=== PATIENT | female | born 1950 | race Two or more races ===

== ENCOUNTER 2024-02-10 20:45 | Inpatient (IN) | payer MEDICARE ==
[~2024-02-10] VITALS: Ht 165.1 cm; Wt 68.0 kg
[2024-02-10] MEDS: CEFEPIME 1 GM in IV D5W 50 ML IV ONE (21:30)
[2024-02-10] MEDS: IV NS 0.9% 1,000 ML BAG IV ONE (21:30)
[2024-02-10] MEDS: ACETAMINOPHEN ES 500 MG TABLET PO ONE (21:30)
[2024-02-10 21:37] LABS: BASOPHILS % (AUTO) 0.3 % (0.0-2.0); EOSINOPHILS % (AUTO) 0.2 % (0.0-6.0); HEMATOCRIT 39 % (33-45); HEMOGLOBIN 12.7 g/dL (11.5-14.8); LYMPHOCYTES % (AUTO) 22.2 % (20.0-44.0); MEAN CORPUSCULAR HEMOGLOBIN 30 PG (26.0-33.0); MEAN CORPUSCULAR HGB CONC 33 g/dl (31.0-36.0); MEAN CORPUSCULAR VOLUME 92 fL (82-100); MONOCYTES # (AUTO) 0.6 K/uL (0.1-1.30); MONOCYTES % (AUTO) 6.8 % (2.0-12.0); NEUTROPHILS # (AUTO) 6.5 K/uL (1.8-8.9); NEUTROPHILS % (AUTO) 70.5 % (43.0-81.0); PLATELET COUNT (AUTO) 296 K/uL (150-450); RED BLOOD CELL COUNT(AUTO) 4.21 MIL/uL (4.0-5.2); RED CELL DISTRIBUTION WIDTH 16.5 % (11.5-15.0); WHITE BLOOD COUNT (AUTO) 9.2 K/uL (4.3-11.0)
[2024-02-10] MEDS ORDERED: CEFEPIME 1 GM VIAL ONE (21:47)
[2024-02-10 21:48] LABS: CALCIUM, SERUM 9.2 mg/dL (8.5-10.1); CARBON DIOXIDE 30 mmol/L (21-32); CHLORIDE 104 mmol/L (98-107); CREATININE 0.8 mg/dL (0.6-1.3); GLUCOSE 144 mg/dL (74-106); POTASSIUM 4.3 mmol/L (3.5-5.1); SODIUM SERUM 141 mmol/L (136-145); UREA NITROGEN, BLOOD 14 mg/dL (7-18)
[2024-02-10] MEDS ORDERED: ACETAMINOPHEN ES 500 MG TABLET ONE (21:48)
[2024-02-10 21:53] LABS: INR 1.06 (0.91-1.10); PARTIAL THROMBOPLASTIN TIME 30.8 SEC (24.3-34.3); PROTHROMBIN TIME 11.2 SECS (9.2-11.1)
[2024-02-10 21:54] LABS: ALANINE AMINOTRANSFERASE 33 U/L (12-78); ALBUMIN 2.7 g/dL (3.4-5.0); ALKALINE PHOSPHATASE 77 U/L (46-116); ASPARTATE AMINOTRANSFERASE 38 U/L (15-37); BILIRUBIN,DIRECT 0.2 mg/dL (0.0-0.2); BILIRUBIN,TOTAL 0.6 mg/dL (0.2-1.0); TOTAL PROTEIN, SERUM 8.5 g/dL (6.4-8.2)
[2024-02-10 21:56] LABS: APPEARANCE,URINE SLIGHTLY CLOUDY (CLEAR); BILIRUBIN,URINE NEGATIVE (NEGATIVE); BLOOD, URINE NEGATIVE Ery/uL (NEGATIVE); COLOR,URINE YELLOW (YELLOW); KETONES,URINE NEGATIVE (NEGATIVE); LEUKOCYTE ESTERASE ,URINE 1+ (NEGATIVE); NITRITE, URINE NEGATIVE (NEGATIVE); PH,URINE 6.5 (5.0-8.0); PROTEIN,URINE TRACE mg/dl (NEGATIVE); UGLUCOSE NEGATIVE (NEGATIVE)
[2024-02-10 21:57] LABS: LACTIC ACID 2.3 mmol/L (0.4-2.0)
[2024-02-10 22:01] LABS: URINE AMORPHOUS URATE Many /HPF (None Seen)
[2024-02-10 22:02] LABS: ADD URINE CULTURE YES; BACTERIA,URINE Few /HPF (None Seen); RBC,URINE 0-2 /HPF (0-2); SQUAMOUS EPITHELIAL CELL,UR Few /HPF (None Seen)
[2024-02-11] MEDS ORDERED: METF-440 PO (08:39)
[2024-02-11] MEDS ORDERED: QUET25TA PO (08:39)
[2024-02-11] MEDS ORDERED: ATOR40TA PO (08:39)
[2024-02-11] MEDS ORDERED: CALC500T53 PO (08:39)
[2024-02-11] MEDS ORDERED: MEMA10TA PO (08:39)
[2024-02-11] MEDS ORDERED: DONE10TA44 PO (08:39)
[2024-02-11] MEDS ORDERED: DULO60CA45 PO (08:39)
[2024-02-11] MEDS ORDERED: QUET50TA PO (08:39)
[2024-02-11] MEDS ORDERED: ASPI-1169 PO (08:39)
[2024-02-11] MEDS ORDERED: DEXTROSE 50%-WATER 50 ML DISP.SYRIN IV PRN (09:30)
[2024-02-11] MEDS ORDERED: ACETAMINOPHEN 325 MG TABLET PO PRN (09:30)
[2024-02-11] MEDS: BLOOD SUGAR DIAGNOSTIC 1 EACH STRIP VI SCH (12:00)
[2024-02-11] MEDS: CEFTRIAXONE 1 G in IV D5W 50 ML IV SCH (14:29)
[2024-02-11] MEDS: QUETIAPINE FUMARATE 25 MG TABLET PO SCH (18:30)
[2024-02-11] MEDS: DONEPEZIL 5 MG TABLET PO SCH (18:31)
[2024-02-11] MEDS: MEMANTINE HCL 5 MG TABLET PO SCH (18:31)
[2024-02-11] MEDS: ATORVASTATIN 40 MG TABLET PO SCH (18:31)
[2024-02-11 20:00] VITALS: BP 135/78; TEMP 98.4; O2SAT 98
[2024-02-12] MEDS: IV D5 LR 1,000 ML IV PRN (07:56)
[2024-02-12 08:00] VITALS: BP 160/70; TEMP 98.5; O2SAT 99
[2024-02-12] MEDS: ASPIRIN 81 MG TAB.CHEW PO SCH (08:30)
[2024-02-12] MEDS: CALCIUM CARBONATE (1250) 500 MG TABLET PO SCH (08:30)
[2024-02-12] MEDS: QUETIAPINE FUMARATE 25 MG TABLET PO SCH (08:30)
[2024-02-12] MEDS: DULOXETINE HCL 30 MG CAPSULE.DR PO SCH (08:30)
[2024-02-12 08:42] LABS: BASOPHILS % (AUTO) 0.3 % (0.0-2.0); EOSINOPHILS # (AUTO) 0.2 K/uL (0.0-0.7); EOSINOPHILS % (AUTO) 2.6 % (0.0-6.0); HEMATOCRIT 31 % (33-45); HEMOGLOBIN 10.5 g/dL (11.5-14.8); LYMPHOCYTES % (AUTO) 15.3 % (20.0-44.0); MEAN CORPUSCULAR HEMOGLOBIN 31 PG (26.0-33.0); MEAN CORPUSCULAR HGB CONC 34 g/dl (31.0-36.0); MEAN CORPUSCULAR VOLUME 91 fL (82-100); MONOCYTES # (AUTO) 0.4 K/uL (0.1-1.30); MONOCYTES % (AUTO) 6.6 % (2.0-12.0); NEUTROPHILS # (AUTO) 4.7 K/uL (1.8-8.9); NEUTROPHILS % (AUTO) 75.2 % (43.0-81.0); PLATELET COUNT (AUTO) 307 K/uL (150-450); RED BLOOD CELL COUNT(AUTO) 3.41 MIL/uL (4.0-5.2); RED CELL DISTRIBUTION WIDTH 16.2 % (11.5-15.0); WHITE BLOOD COUNT (AUTO) 6.3 K/uL (4.3-11.0)
[2024-02-12 08:54] LABS: LACTIC ACID 1.1 mmol/L (0.4-2.0)
[2024-02-12] MEDS ORDERED: OLANZAPINE 10 MG VIAL IM PRN ×2 (09:00→10:00)
[2024-02-12] MEDS: hydrALAZINE HCL IV 20 MG VIAL IV PRN (09:05)
[2024-02-12 09:39] LABS: THYROID STIMULATING HORMONE 2.28 uIU/mL (0.358-3.74)
[2024-02-12] MEDS ORDERED: hydrALAZINE HCL IV 20 MG VIAL IV PRN (10:00)
[2024-02-12 10:26] LABS: ALBUMIN 2.4 g/dL (3.4-5.0); BILIRUBIN,TOTAL 0.3 mg/dL (0.2-1.0); CALCIUM, SERUM 8.9 mg/dL (8.5-10.1); CREATININE 0.6 mg/dL (0.6-1.3); POTASSIUM 3.4 mmol/L (3.5-5.1)
[2024-02-12] MEDS: INSULIN REGULAR, HUMAN 100 UNIT/ML 3 ML VIAL SQ PRN (12:01)
[2024-02-12 16:00] VITALS: BP 135/65; TEMP 98.4; O2SAT 96
[2024-02-12] MEDS: POTASSIUM CHLORIDE 20 MEQ TAB.PRT.SR PO ONE (16:08)
[2024-02-12] MEDS: ENSURE ENLIVE CHOC 237 ML CAN PO SCH (17:01)
[2024-02-12 20:00] VITALS: BP 139/79; TEMP 98.4; O2SAT 96
[2024-02-12] MEDS: *INSULIN REGULAR(HUMULIN R)HUM 100 UNIT/ML VIAL SQ PRN (21:54)
[2024-02-13 04:00] VITALS: BP 150/67; TEMP 98.1; O2SAT 96
[2024-02-13] MEDS ORDERED: CEPH-570 PO (07:55)
[2024-02-13 08:00] VITALS: BP 151/77; TEMP 98.1; O2SAT 93
[2024-02-13 08:52] LABS: CALCIUM, SERUM 8.5 mg/dL (8.5-10.1); CREATININE 0.6 mg/dL (0.6-1.3); POTASSIUM 3.5 mmol/L (3.5-5.1)
[2024-02-13 16:00] VITALS: BP 126/71; TEMP 98.5; O2SAT 95
[2024-02-13 20:00] VITALS: BP 124/81; TEMP 99; O2SAT 96
[2024-02-14 04:25] VITALS: BP 158/85; TEMP 99.1; O2SAT 94
[2024-02-14 08:00] VITALS: BP 140/79; TEMP 98.1; O2SAT 92
== END 2024-02-14 15:40 | DRG 871 ==
LOC: ER 20:56 → TRANSITION 02-11 04:43 → MEDSG1 02-11 11:02
PROVIDERS: ADMIT Internal Medicine; ATTEND Internal Medicine
DX: A41.9 Sepsis, unspecified organism (principal); G93.41 Metabolic encephalopathy; S52.602A Unspecified fracture of lower end of left ulna, initial encounter for closed fracture; N39.0 Urinary tract infection, site not specified; F03.918 Unspecified dementia, unspecified severity, with other behavioral disturbance; E44.0 Moderate protein-calorie malnutrition; E87.20 Acidosis, unspecified; F03.90 Unspecified dementia, unspecified severity, without behavioral disturbance, psychotic disturbance, mood disturbance, and anxiety; R62.7 Adult failure to thrive; Z20.822 Contact with and (suspected) exposure to COVID-19; I10 Essential (primary) hypertension; E78.5 Hyperlipidemia, unspecified; E86.0 Dehydration; D69.2 Other nonthrombocytopenic purpura; W19.XXXA Unspecified fall, initial encounter; Y92.9 Unspecified place or not applicable; E11.9 Type 2 diabetes mellitus without complications
CPT/HCPCS: 36415; 70450-TC; 71045-TC; 73110; 80048-TC; 80053-TC; 80076-TC; 81001; 82962-TC; 83605-TC; 83735-TC; 84439-TC; 84443-TC; 84484-TC; 85025-TC; 85730-TC; 87040-TC; 87086-TC; 92526; 92611-TC; 97110-TC; 97530-TC; A4223; G0378; J0360; J0692; J0696; J1815; J3490; J7040; J7060